=== PATIENT | male | born 1975 ===

== ENCOUNTER → 2021-09-17 | Outpatient (CLI) | payer OTHER | END | disposition home or self-care (01) | LOC: LAB 16:00 → LAB SHORT 16:00 | DX: L08.9 Local infection of the skin and subcutaneous tissue, unspecified (principal) | CPT/HCPCS: 87070; 87075; 87077; 87186; 87205 ==

== ENCOUNTER 2023-11-24 20:40 | Emergency (ER) | payer OTHER ==
[~2023-11-24] VITALS: Ht 185.4 cm; Wt 124.3 kg
[2023-11-24 21:02] VITALS: BP 175/85
[2023-11-24] MEDS ORDERED: Diphth,Pertuss(Acell),Tet Vac 0.5 ML VIAL IM ONE (21:25)
== END 2023-11-24 21:45 | disposition home or self-care (01) ==
LOC: ER 20:40
DX: S01.01XA Laceration without foreign body of scalp, initial encounter (principal); W01.10XA Fall on same level from slipping, tripping and stumbling with subsequent striking against unspecified object, initial encounter
CPT/HCPCS: 12002; 90471; 90715; 99282-25